=== PATIENT | male | born 1965 | race African-American/Black ===

== ENCOUNTER 2023-10-09 11:40 | Inpatient (IN) | payer OTHER ==
[~2023-10-09] VITALS: Ht 182.9 cm; Wt 68.2 kg
[2023-10-09 12:15] LABS: BASOPHILS % 0.7 % (0.0-2.0); EOSINOPHILS % 2.7 % (0.0-5.0); HEMATOCRIT. 39.4 % (42.0-52.0); HEMOGLOBIN. 13.2 g/dL (14.0-18.0); LYMPHOCYTES % 13.4 % (20.0-50.0); MEAN CORPUSCULAR HEMOGLOBIN 30.8 pg (28.0-32.0); MEAN CORPUSCULAR HGB CONC 33.4 g/dL (31.0-37.0); MEAN CORPUSCULAR VOLUME 92.3 fL (80.0-94.0); MONOCYTES % 7.7 % (2.0-8.0); NEUTROPHILS % 75.5 % (40.0-76.0); PLATELET 222 x1000/uL (130-400); RED BLOOD CELL COUNT 4.26 mill/uL (4.7-6.1); RED CELL DISTRIBUTION WIDTH 12.4 % (11.6-14.6); WHITE BLOOD COUNT 6.3 x1000/uL (4.5-11.0)
[2023-10-09] MEDS: MORPHINE SULFATE 4 MG/ML INJ (FOR IV/IM USE) IV ONE (12:15)
[2023-10-09 13:00] LABS: CHLORIDE 109 mEq/L (98-107); SODIUM 139 mEq/L (136-145)
[2023-10-09 13:01] LABS: CARBON DIOXIDE 25 mEq/L (21-32)
[2023-10-09 13:02] LABS: CALCIUM 8.5 mg/dL (8.7-10.4)
[2023-10-09 13:06] LABS: CREATININE 1.1 mg/dL (0.6-1.3); GLUCOSE 101 mg/dL (70-105); UREA NITROGEN BLOOD 10 mg/dL (9-23)
[2023-10-09 13:08] LABS: TROPONIN I HIGH SENSITIVITY < 4 ng/L (3.0-53)
[2023-10-09] MEDS: ONDANSETRON HCL 4MG/2ML INJ IV ONE (13:42)
[2023-10-09] MEDS ORDERED: GUAIFENESIN 200MG/10ML SUGAR FREE UDC PO PRN (14:00)
[2023-10-09] MEDS ORDERED: ZOLPIDEM TARTRATE 5MG TABLET PO PRN (14:00)
[2023-10-09] MEDS ORDERED: NITROGLYCERIN 0.4MG TABLET SL SL PRN (14:00)
[2023-10-09] MEDS ORDERED: IPRATROPIUM/ALBUTEROL 0.5-3(2.5)MG/3ML NEB NEB PRN (14:00)
[2023-10-09] MEDS ORDERED: DOCUSATE SODIUM 100MG CAPSULE PO PRN (14:00)
[2023-10-09] MEDS ORDERED: CLONIDINE 0.1MG TABLET PO PRN (14:00)
[2023-10-09] MEDS ORDERED: ACETAMINOPHEN 325MG TABLET PO PRN ×2 (14:00)
[2023-10-09] MEDS ORDERED: MAGNESIUM/ALUMINUM HYDROXIDE/SIMETHICONE 30ML UDC PO PRN (14:00)
[2023-10-09] MEDS ORDERED: ONDANSETRON HCL 4MG/2ML INJ IV PRN (14:00)
[2023-10-09] MEDS ORDERED: KETOROLAC 15MG/ML VIAL IV PRN (14:00)
[2023-10-09] MEDS: LACTATED RINGERS 1,400 ML IV ONE (15:00)
[2023-10-09 15:49] LABS: IRON 78 ug/dL (65-175)
[2023-10-09 15:50] LABS: TRIGLYCERIDE 131 mg/dL (0-150)
[2023-10-09 15:51] LABS: LDL CHOLESTEROL 141 mg/dL (5-100)
[2023-10-09 15:52] LABS: CHOLESTEROL 206 mg/dL (<200); HDL CHOLESTEROL 40 mg/dL (>55); TOTAL IRON BINDING CAPACITY 308 ug/dl (250-425)
[2023-10-09 15:53] LABS: FOLIC ACID (FOLATE) SERUM > 20.00 ng/mL (>5.38)
[2023-10-09 15:54] LABS: VITAMIN B12 SERUM 175 pg/mL (211-911)
[2023-10-09 15:55] LABS: T4 FREE 1.09 ng/dL (0.89-1.76); THYROID STIMULATING HORMONE 0.97 uIU/mL (0.55-4.78)
[2023-10-09 16:05] LABS: ETHANOL BLOOD < 10 mg/dL (<10); TROPONIN I HIGH SENSITIVITY < 4 ng/L (3.0-53)
[2023-10-09] MEDS: ENOXAPARIN 40MG/0.4ML SYR SUBCUT SCH (18:25)
[2023-10-09 21:49] LABS: CREATINE KINASE 81 IU/L (46-171)
[2023-10-09 22:02] LABS: TROPONIN I HIGH SENSITIVITY < 4 ng/L (3.0-53)
[2023-10-09] MEDS: FAMOTIDINE 20MG TABLET PO SCH (22:08)
[2023-10-09 23:02] LABS: CREATINE KINASE MB FRACTION 1.2 ng/mL (0.5-3.6)
[2023-10-09 23:04] LABS: CREATINE KINASE 84 IU/L (46-171)
[2023-10-09 23:08] LABS: TROPONIN I HIGH SENSITIVITY < 4 ng/L (3.0-53)
[2023-10-10] VITALS (9 sets, daily range): BP systolic 98–132; BP diastolic 73–84; PULSE 57–84; RESP 11–20; TEMP 97.6–98.8
[2023-10-10] MEDS ORDERED: SERT-422 PO (01:48)
[2023-10-10 06:53] LABS: CHLORIDE 108 mEq/L (98-107); POTASSIUM 3.8 mEq/L (3.5-5.1); SODIUM 140 mEq/L (136-145)
[2023-10-10 06:57] LABS: CALCIUM 8.8 mg/dL (8.7-10.4); CARBON DIOXIDE 26 mEq/L (21-32)
[2023-10-10 07:02] LABS: CREATININE 1.1 mg/dL (0.6-1.3); GLUCOSE 90 mg/dL (70-105); UREA NITROGEN BLOOD 9 mg/dL (9-23)
[2023-10-10 07:03] LABS: ALANINE AMINOTRANSFERASE 14 IU/L (10-49); ALBUMIN 3.8 g/dL (3.2-4.8)
[2023-10-10 07:04] LABS: ASPARTATE AMINOTRANSFERASE 19 IU/L (<34); BILIRUBIN TOTAL 2.5 mg/dL (0.1-1.0); PHOSPHORUS 3.8 mg/dL (2.5-4.9); PROTEIN TOTAL 6.2 g/dL (6.0-8.3)
[2023-10-10 07:11] LABS: EOSINOPHILS % 10.9 % (0.0-5.0); HEMATOCRIT. 39.4 % (42.0-52.0); LYMPHOCYTES % 36.1 % (20.0-50.0); MEAN CORPUSCULAR HEMOGLOBIN 30.5 pg (28.0-32.0); MEAN CORPUSCULAR HGB CONC 32.9 g/dL (31.0-37.0); MEAN CORPUSCULAR VOLUME 92.5 fL (80.0-94.0); MEAN PLATELET VOLUME 7.6 fl (7.4-10.4); MONOCYTES % 9.2 % (2.0-8.0); NEUTROPHILS % 42.8 % (40.0-76.0); PLATELET 235 x1000/uL (130-400); RED BLOOD CELL COUNT 4.25 mill/uL (4.7-6.1); RED CELL DISTRIBUTION WIDTH 12.3 % (11.6-14.6); WHITE BLOOD COUNT 3.6 x1000/uL (4.5-11.0)
[2023-10-10 07:19] LABS: HEPATITIS B SURFACE ANTIGEN NEGATIVE (Negative)
[2023-10-10 07:40] LABS: HEPATITIS C AB NON REACTIVE (Neg) (Negative)
[2023-10-10] MEDS: ASPIRIN 81MG EC TABLET PO SCH (08:18)
[2023-10-11] VITALS: BP 99/57; PULSE 61; RESP 12; TEMP 98.6
[2023-10-11 04:00] VITALS: BP 110/69; PULSE 61; RESP 15; TEMP 98.2
[2023-10-11 04:54] LABS: *AMPHETAMINES SCREEN URINE NEGATIVE (NEGATIVE); *BARBITURATES SCREEN URINE NEGATIVE (NEGATIVE); *BENZODIAZEPINES SCREEN URINE NEGATIVE (NEGATIVE); *COCAINE SCREEN URINE NEGATIVE (NEGATIVE); METHADONE URINE SCREEN NEGATIVE (NEGATIVE); OPIATES URINE SCREEN NEGATIVE (NEGATIVE); PHENCYCLIDINE URINE SCREEN NEGATIVE (NEGATIVE)
[2023-10-11 04:55] LABS: CANNABINOID URINE SCREEN NEGATIVE (NEGATIVE); ECSTASY MDMA SCREEN URINE NEGATIVE (NEGATIVE)
[2023-10-11 08:00] VITALS: BP 119/106; PULSE 67; RESP 15; TEMP 98.2
[2023-10-11 10:31] VITALS: BP 110/69; PULSE 61; TEMP 98.2; O2SAT 100
== END 2023-10-11 13:48 | disposition home or self-care (01) | DRG 312 ==
LOC: ER 11:40 → EDBEDREQ 11:56 → EDBEDREQTM 13:16 → 5WST 17:53 → 3WST 10-10 01:16
PROVIDERS: ADMIT Internal Medicine; ATTEND Internal Medicine
DX: I95.1 Orthostatic hypotension (principal); R10.32 Left lower quadrant pain; R07.89 Other chest pain; D63.8 Anemia in other chronic diseases classified elsewhere; R94.31 Abnormal electrocardiogram [ECG] [EKG]; F43.10 Post-traumatic stress disorder, unspecified
CPT/HCPCS: 36415; 71045; 74176; 80048; 80053; 80061; 80305; 80320; 82550; 82553; 82607; 82746; 83036; 83540; 83550; 83605; 83735; 83880; 84100; 84145; 84439; 84443; 84484; 85025; 85379; 86705; 87340; 93005; 93306; 93970; 99285; J1650; J2270; J2405; G0480